=== PATIENT | female | born 1955 | race Caucasian/White ===

== ENCOUNTER 2016-10-03 08:06 | Day surgery (SDC) | payer OTHER ==
[~2016-10-03] VITALS: Ht 170.2 cm; Wt 118.2 kg
[2016-10-03 09:38] LABS: HEMATOCRIT 42.7 % (36.0-48.0); HEMOGLOBIN 13.9 g/dL (12-16); MCH 29.5 pg (26.0-34.0); MCHC 32.6 g/dL (31.0-37.0); MCV 90.7 fL (80.0-100.0); MEAN PLATELET VOLUME 11.7 fL (7.4-10.4); RBC 4.71 10x6/uL (4.00-5.40); RDW 14.1 % (11.5-14.5); WBC 5.5 10x3/uL (4.8-10.8)
[2016-10-03 09:54] LABS: INR 1.04 (0.85-1.17); PROTIME 13.4 SECONDS (11.6-15.0)
[2016-10-03] MEDS ORDERED: COUMADIN4 MG PO (10:50)
[2016-10-03] MEDS ORDERED: COUMADIN3 MG PO (10:51)
[2016-10-03] MEDS ORDERED: COUMADIN5 MG PO (10:51)
[2016-10-03] MEDS ORDERED: LOVENOX SC (10:54)
[2016-10-03 11:17] VITALS: BP 168/103; Ht 170.2 cm; Wt 118.2 kg
--- NOTE | 2016-10-05 15:58 | OP ---
PATIENT NAME: JESSICA CUNNINGHAM MEDICAL RECORD: [id number] :55 LOCATION:D[facility]OPS ADMISSION DATE: SURGEON: GEO LYNCH DO DATE OF OPERATION: 10/03/2016 PROCEDURE: Colonoscopy with snare polypectomy. INDICATIONS FOR PROCEDURE: Screening colonoscopy. SCOPE: Olympus video pediatric colonoscope. MEDICATIONS: Propofol 430 mg IV per anesthesia. ESTIMATED BLOOD LOSS: Minimal. COMPLICATIONS: None. FINDINGS: Informed consent was given. The patient was made comfortable with the above medication. After reaching an adequate level of sedation by slow IV push, the patient was placed on her left side. A digital rectal examination was performed and was normal. The endoscope was then advanced under direct visualization through the anus to the cecum, confirmed by visualization of the appendiceal orifice and ileocecal valve. The scope was then slowly withdrawn as the mucosa was carefully examined. There was evidence of mild diverticulosis of the sigmoid colon with small mouthed diverticula present. There was a single benign appearing sessile polyp, measuring approximately 8 mm in size located in the sigmoid colon. It was removed in 1 piece with a hot snare polypectomy. It was completely retrieved. Retroflexion was performed in the rectum without evidence of hemorrhoids. The scope was then withdrawn from the patient. The patient tolerated the procedure well and there were no complications. IMPRESSION: 1. A single sigmoid polyp as described above removed with a hot snare. 2. Mild diverticulosis of the sigmoid colon. PLAN AND RECOMMENDATIONS: 1. Discharge home when recovery parameters are met. 2. Continue current medications. 3. High fiber diet. 4. Recall colonoscopy, pending results of polyp pathology. At this time, I anticipate a recall time line of 3 years. TRANSINT:[id number] Voice Confirmation ID: [id number] DOCUMENT ID: [id number] GEO LYNCH DO at 1558 CC: [id number] DICTATION DATE: 10/03/16 1132 EVP MANAGING DIRECTOR: 10/03/162026 [facility] 10/03/16 [place] [id number]
== END 2016-10-03 12:40 | disposition home or self-care (01) ==
LOC: D.OPS 08:06
PROVIDERS: Anesthesiology
DX: Z12.11 Encounter for screening for malignant neoplasm of colon (principal); K57.30 Diverticulosis of large intestine without perforation or abscess without bleeding; J45.909 Unspecified asthma, uncomplicated; K21.9 Gastro-esophageal reflux disease without esophagitis; E66.9 Obesity, unspecified; Z68.41 Body mass index [BMI] 40.0-44.9, adult; Z01.812 Encounter for preprocedural laboratory examination; D12.5 Benign neoplasm of sigmoid colon